=== PATIENT | female | born 1960 | race African-American/Black ===

== ENCOUNTER 2020-11-28 12:37 | Outpatient (CLI) | payer BC | END 2020-11-28 12:38 | disposition home or self-care (01) | LOC: RAD 12:37 | PROVIDERS: ATTEND Internal Medicine Gastroenterology | DX: Z53.9 Procedure and treatment not carried out, unspecified reason (principal) | CPT/HCPCS: 74280 ==

== ENCOUNTER 2025-02-10 14:05 | Outpatient (CLI) | payer BC ==
[2025-02-10 16:24] LABS: #Basophils 0.05 10x3/uL (0.0-0.2); #Eosinophils 0.14 10x3/uL (0.0-0.7); #Monocytes 0.38 10x3/uL (0.11-0.59); #Neutrophils 1.70 10x3/uL (1.40-6.50); %Basophils 1.0 % (0.0-1.0); %Eosinophils 2.9 % (0.0-10.0); %Lymphocytes 52.7 % (21.0-51.0); %Monocytes 7.9 % (0.0-10.0); %Neutrophils 35.3 % (42.0-75.0); Hematocrit 39.0 % (36.0-47.0); Hemoglobin 12.1 g/dL (12.0-16.0); Mean Corpuscular Hemoglobin 28.0 pg (27.0-31.0); Mean Corpuscular Volume 90.3 fL (78.0-98.0); Platelet Count 203 10x3/uL (130-400); Red Blood Cell (RBC) Count 4.32 mill/uL (4.20-5.40); White Blood Cell (WBC) Count 4.82 10x3/uL (4.8-10.8)
[2025-02-10 16:38] LABS: PTT 29.4 sec (22.9-36.1)
[2025-02-10 16:39] LABS: INR-International Normal Ratio 1.0; Prothrombin Time 13.5 sec (12.0-14.7)
== END 2025-02-10 14:06 | disposition home or self-care (01) ==
LOC: LABBT 14:05
PROVIDERS: ATTEND Neurological Surgery
DX: Z01.818 Encounter for other preprocedural examination (principal); M43.16 Spondylolisthesis, lumbar region; M99.23 Subluxation stenosis of neural canal of lumbar region
CPT/HCPCS: 85025; 85610; 85730; 93005; 93010